=== PATIENT | female | born 1945 | race Caucasian/White ===

== ENCOUNTER 2017-10-25 11:47 | Emergency (ER) | payer OTHER ==
[2017-10-25 11:57] VITALS: BMI 19.8
[2017-10-25] MEDS ORDERED: DEXAMETHASONE SOD PHOSPHATE 10 MG/1 ML VIAL ONE (12:04)
[2017-10-25] MEDS ORDERED: ALBUTEROL SO4 2.5/IPRATROPIUM 0.5 INH SOL 3 ML VIAL.NEB. NEB ONE (12:05)
--- NOTE | 2017-10-25 12:18 | PDOC ---
History of Present Illness - History of Present Illness Initial Comments: 10/25/17 15:25 The patient is a 72 year old female, with a significant past medical history of COPD, pulmonary hypertension, ESRD, hypothyroidism, who presents to the emergency department with, shortness of breath via EMS. The patient is unable to provide additional information secondary to clinical condition. However, the patient's daughter is present and explains she notified EMS as the patients oxygen saturation was 76% at home on 4 LPM of oxygen. As per patients daughter, the patient was recently discharged from [facility] four days ago after being admitted for 8 days with pneumonia. The patients daughter reports the patient has not been recovering well since discharge and states the patient has had sore throat and difficulty swallowing and speaking for approx. one day. Allergies: lisinopril, valsartan Primary Care Physician: Dr. Sesar Mauricio at [facility] <Law Ewing - Last Filed: 10/25/17 15:25> - General History Source: Patient, Family Exam Limitations: Language Barrier (taken with help of daughter who is bedside) <Ky Irizarry - Last Filed: 10/25/17 20:09> - General Chief Complaint: Shortness of Breath Stated Complaint: SHORTNESS OF BREATH/CHEST PAIN Time Seen by Provider: 10/25/17 11:58 Past History <Law Ewing - Last Filed: 10/25/17 15:25> - Past Medical History COPD: No HTN: Yes Psychiatric Problems: Yes Thyroid Disease: Yes Other medical history: pulmonary htn, CKD, spinal stenosis, arthritis - Suicide/Smoking/Psychosocial Hx Smoking History: Never smoked <Ky Irizarry - Last Filed: 10/25/17 20:09> - Past Medical History Allergies/Adverse Reactions: Allergies Allergy/AdvReac Type Severity Reaction Status Date / Time lisinopril Allergy Verified 10/25/17 11:52 valsartan Allergy Verified 10/25/17 11:52 Home Medications: Ambulatory Orders Allopurinol 300 mg PO DAILY 10/25/17 Aspirin [Aspirin EC] 81 mg PO DAILY 10/25/17 Calcium Acetate 0 mg PO DAILY 10/25/17 Citalopram Hydrobromide [Citalopram HBr] 0 mg PO DAILY 10/25/17 Levothyroxine [Synthroid -] 75 mcg PO DAILY 10/25/17 Sodium Bicarbonate 0 mg PO DAILY 10/25/17 Review of Systems - Review of Systems Comments:: 10/25/17 15:27 Constitutional - Pt denies Fever, Chills, weakness, HEENT: denies vision changes, sore throat Respiratory: +Shortness of breath. Denies cough, hemoptysis Cardiac: denies chest pain, palpitations, light headedness, leg swelling Abd/GI: denies abd pain, nausea, vomiting, blood per rectum, melena, diarrhea : denies dysuria, frequency, discharge Musculskelatal - denies back pain, joint swelling skin - denies bruising, erythema, rash neurological: denies headache, numbness, focal weakness, tingling, ataxia, weakness hematologic: denies anemia, easy bruising, easy bleeding <Law Ewing - Last Filed: 10/25/17 15:25> *Physical Exam - Vital Signs Last Vital Signs Temp Pulse Resp BP Pulse Ox 97.8 F 154 H 22 89/68 94 L 10/25/17 12:59 10/25/17 14:24 10/25/17 14:24 10/25/17 14:24 10/25/17 14:24 - Physical Exam Comments: 10/25/17 15:27 GENERAL: The patient is awake, alert, Pt appears to be moderate inrespiratory distress HEAD: Normocephalic, atraumatic. EYES: extraocular movements intact, sclera anicteric, conjunctiva clear. ENT: Normal voice, dry MM, no c NECK: Normal range of motion, supple, +JVD to jaw LUNGS: scant rales b/l, moderate respiratory distress HEART: tachycardic, irregular, distant heart sunds ABDOMEN: Soft, nontender, EXTREMITIES: Normal range of motion, no edema. NEUROLOGICAL: No facial assymetry, Normal speech, PSYCH: Normal mood, normal affect. SKIN: Warm, Dry, normal turgor, <Law Ewing - Last Filed: 10/25/17 15:25> - Vital Signs Last Vital Signs Temp Pulse Resp BP Pulse Ox 108 H 32 H 119/85 88 L 10/25/17 11:53 10/25/17 11:53 10/25/17 11:53 10/25/17 11:53 <Ky Irizarry - Last Filed: 10/25/17 20:09> Heart Score/ECG Review - ECG Impressions Comment:: 10/25/17 12:32 Twelve-lead EKG was performed and reviewed by me. Irregularly irregular, rate of 160 <Juan C,Ky - Last Filed: 10/25/17 20:09> ED Treatment Course - LABORATORY CBC & Chemistry Diagram: 10/25/17 12:22 10/25/17 12:22 - ADDITIONAL ORDERS Additional order review: Laboratory Results 10/25/17 10/25/17 10/25/17 12:32 12:22 12:22 PT with INR INR PTT (Actin FS) VBG pH 7.39 POC VBG pCO2 41.3 POC VBG pO2 24.0 L Mixed VBG HCO3 24.2 Sodium Potassium Chloride Carbon Dioxide Anion Gap BUN Creatinine Creat Clearance w eGFR Random Glucose Lactic Acid Calcium Total Bilirubin AST ALT Alkaline Phosphatase Creatine Kinase Troponin I B-Natriuretic Peptide 4634.16 H Total Protein Albumin TSH 0.11 L Blood Type Antibody Screen 10/25/17 10/25/17 10/25/17 12:22 12:22 12:22 PT with INR INR PTT (Actin FS) VBG pH POC VBG pCO2 POC VBG pO2 Mixed VBG HCO3 Sodium 138 Potassium 5.0 Chloride 104 Carbon Dioxide 25 Anion Gap 9 BUN 57 H Creatinine 2.4 H Creat Clearance w eGFR 19.84 Random Glucose 117 H Lactic Acid 2.2 H* Calcium 8.0 L Total Bilirubin 0.5 AST 175 H ALT 170 H Alkaline Phosphatase 312 H Creatine Kinase 48 Troponin I < 0.02 B-Natriuretic Peptide Total Protein 6.8 Albumin 2.4 L TSH Blood Type B POSITIVE Antibody Screen Negative 10/25/17 12:22 PT with INR 12.20 H INR 1.08 PTT (Actin FS) 27.6 VBG pH POC VBG pCO2 POC VBG pO2 Mixed VBG HCO3 Sodium Potassium Chloride Carbon Dioxide Anion Gap BUN Creatinine Creat Clearance w eGFR Random Glucose Lactic Acid Calcium Total Bilirubin AST ALT Alkaline Phosphatase Creatine Kinase Troponin I B-Natriuretic Peptide Total Protein Albumin TSH Blood Type Antibody Screen 10/25/17 12:22 RBC 2.94 L MCV 88.7 MCHC 31.8 L RDW 17.3 H MPV 8.5 Neutrophils % 79.1 Lymphocytes % 10.3 Monocytes % 9.8 Eosinophils % 0.4 Basophils % 0.4 - RADIOLOGY Radiograph Interpretation: 10/25/17 15:24 EXAM#: TYPE/EXAM: RESULT: [id number] RAD/CHEST X-RAY PORTABLE* EXAM: Chest x-ray - single AP portable view. INDICATION: Shortness of breath. COMPARISON: None available. FINDINGS: There is enlargement of the cardiac silhouette. There is mild pulmonary vascular congestion. There are small pleural effusions with blunting the costophrenic angles. There is fluid tracking along the right minor fissure. There is bibasilar subsegmental atelectasis. There is subsegmental atelectasis in the left midlung. There is no definable pneumothorax. There is calcific atherosclerosis along the aortic arch. No abnormal deviation of the trachea. There is acromioclavicular and glenohumeral arthropathy and degenerative changes in the visualized spine. IMPRESSION: Enlargement of the cardiac silhouette and mild pulmonary vascular congestion with small bilateral pleural effusions. Please correlate for mild to moderate CHF exacerbation. Subsegmental atelectasis in both lung bases and discoid atelectasis in the left midlung. Reported By: Rosa Riddle DO <Law Ewing - Last Filed: 10/25/17 15:25> - LABORATORY CBC & Chemistry Diagram: 10/25/17 12:22 10/25/17 12:22 <Ky Irizarry - Last Filed: 10/25/17 20:09> Medical Decision Making - Medical Decision Making 10/25/17 15:27 Dr. Mackenzie paged at 12:53 pm. Pending call back. Second page sent to Dr. Mackenzie at 1:[address] Mackenzie returned the page at 1: 45 pm. <Law Ewing - Last Filed: 10/25/17 15:25> - Medical Decision Making 10/25/17 12:21 72y F hx of pulm htn, known rbbb, hypothyroidism, copd, ?chf, esrd, htn, with recent hospitalization at [facility] for pneumonia s/p abx (vanc/zosyn, d/cd for outpatient), dc on 4L of NC 4 days ago, ?pericadial/pleural effusion, presents with worsening sob. Per daugther the pt has been persistently worsening hypoxic after dc, and finally agreed to come to the ED. The patient also endorses some chest pain. no f/c, +cough on exam pt appears sob, with jvd, scattered rales b/l pt was noted to be intermittently tachy to 170s but will drop down to 120s at rest. hypoxic to 60s on RA, and only improves to 70s on 4L of NC. pt was put on a NRB, will start bipap. ddx includes pericoardial effusion, uremia, consider PE, limited bedside echo shows pericardial effusion but quality of image is deminsihed, will get state formal echo here in ED. will ck labs, ekg will reassess 10/25/17 12:37 The patient's EKG reveals A. fib with a rate of 160 The patient's BP is normal however concerned that the patient may be tachycardic compensating for possible pericardial effusion Will obtain bedside echo to confirm effusion We'll consult with cardiology 10/25/17 12:46 called [facility] about prior hospitalization was d/c on 10/19 ekg was RBBB, NSR echo with normal EF, marked to severe pulm htn venous duplx eg vq neg cxr LLL atelectasis, ?pna CTA b/l pleural effusion with small pericardial effusion, no PE 10/25/17 13:23 official echo here - noted +pericardial effusion - moderate on my read awaiting formal read awaiting call back from cardiology for further intervention - if persistent tachycardic will rate control but would like input from cards 10/25/17 13:[address] fierro will come see the patient HR currently 118 comfortable appearing 10/25/17 14:[address] shi will ck echo - will hold of on a/c and rate control at this point as her HR is stable in the 110s if moderate to severe effusion, will consider transfer 10/25/17 15:03 requests transfer to [facility] [employer] pts HR increases to 160s occasionally, but reverts back to 90-100s. bp stable with SBP in 100, 90 10/25/17 15:28 ?intermittent cp - seems ton icnrease with her HR ?pt sitting up -? positional - possible pericarditis - will start pt on colchicine and ibuprofen awaiting EMS pickup The patient was seen and examined to determine medical stability. The patient is MEDICALLY STABLE at this time. Labs, EKG, radiological studies were ordered to expedite the patient's care. I certify that I have discussed with the patient and/or his sales representative health insurance the following risks and benefits of the proposed transfer. Risks include worsening of patients condition during transport,auto accident, or permanent disability. Benefits include receiving specialized care not available at this facility. I certify that, based on the information available at this time, the medical benefits reasonably expected from the provision of appropriate medical treatment at the receiving facility outweigh the increased risk to the patient. I believe the patient/relative/guardian understands what I have explained and answered. The patient will be transferred to the service of Dr. Sullivan at [facility] with plan for the [employer] CRITICAL CARE DOCUMENTATION: I spent ~110 minutes of Critical Care time, excluding separately billable procedures, involving high complexity decision making to assess, manipulate and support vital system function(s) to treat single or multiple vital organ system failure and/or to prevent further life threatening deterioration of the patient' s condition. <Ky Irizarry - Last Filed: 10/25/17 20:09> *DC/Admit/Observation/Transfer - Attestations Scribe Attestion: 10/25/17 15:28 Documentation prepared by Law Ewing, acting as medical coordinator pesticide use for Ky Irizarry MD. <Law Ewing - Last Filed: 10/25/17 15:25> - Discharge Dispostion Admit: No - Transfer to Acute Care Facility Receiving Facility: [facility] Accepting Physician:: Dr. Roger Sullivan <Ky Irizarry - Last Filed: 10/25/17 20:09> Diagnosis at time of Disposition: Pulmonary hypertension, Pericardial effusion Atrial fibrillation Qualifiers: Atrial fibrillation type: unspecified Qualified Code(s): I48.91 - Unspecified atrial fibrillation - Discharge Dispostion Disposition: TRANSFER ACUTE CARE/OTHER HOSP Condition at time of disposition: Guarded - Referrals Referrals: Sesar Hung [Primary Care Provider] - - Patient Instructions - Post Discharge Activity
[2017-10-25 12:42] LABS: BASO % 0.4 % (0-2.0); EOS % 0.4 % (0-4.5); HEMATOCRIT 26.1 % (32.4-45.2); HEMOGLOBIN 8.3 GM/dL (10.7-15.3); LYMPH % 10.3 % (8-40); MCH 28.2 pg (25.7-33.7); MCHC 31.8 g/dl (32.0-36.0); MEAN CELL VOLUME 88.7 fl (80-96); MEAN PLT VOLUME 8.5 fl (7.5-11.1); MONO % 9.8 % (3.8-10.2); NEUT % 79.1 % (42.8-82.8); PLATELET COUNT 632 K/MM3 (134-434); RBC 2.94 M/mm3 (3.60-5.2); RDW 17.3 % (11.6-15.6)
[2017-10-25 12:54] LABS: INR 1.08 (0.82-1.09); PROTHROMBIN TIME (PATIENT) 12.2 SEC (9.98-11.88)
[2017-10-25 12:56] LABS: VENOUS PC02 41.3 mmHg (38-52); VENOUS PH 7.39 (7.32-7.42)
[2017-10-25 12:57] LABS: ACTIVATED PTT 27.6 SECONDS (26.9-34.4)
[2017-10-25 13:23] LABS: ALBUMIN 2.4 g/dl (3.4-5.0); ANION GAP 9 (8-16); BILIRUBIN,TOTAL 0.5 mg/dL (0.2-1.0); BLOOD UREA NITROGEN 57 mg/dL (7-18); CHLORIDE 104 mmol/L (98-107); CO2 25 mmol/L (21-32); CREATININE 2.4 mg/dL (0.55-1.02); GLUCOSE,RANDOM 117 mg/dL (74-106); SGOT/AST 175 U/L (15-37); SGPT/ALT 170 U/L (12-78); SODIUM 138 mmol/L (136-145); TOT PROT 6.8 g/dl (6.4-8.2)
[2017-10-25 13:26] LABS: ALK PHOS 312 U/L (45-117)
--- NOTE | 2017-10-25 15:15 | EKG ---
Test Reason : Blood Pressure : / mmHG Vent. Rate : 160 BPM Atrial Rate : 141 BPM P-R Int : 000 ms QRS Dur : 118 ms QT Int : 326 ms P-R-T Axes : 000 133 -34 degrees QTc Int : 531 ms POOR DATA QUALITY, INTERPRETATION MAY BE ADVERSELY AFFECTED ATRIAL FIBRILLATION WITH RAPID VENTRICULAR RESPONSE LOW VOLTAGE QRS RIGHT BUNDLE BRANCH BLOCK ABNORMAL ECG NO PREVIOUS ECGS AVAILABLE Confirmed by ABBY VINSON MD ([id number]) on 10/25/2017 3:15:13 PM Referred By: Confirmed By:ABBY VINSON MD
[2017-10-25] MEDS ORDERED: COLCHICINE 0.6 MG TABLET (FP) PO ONE (15:28)
[2017-10-25] MEDS ORDERED: IBUPROFEN 400 MG TABLET (FP) PO ONE (15:28)
[2017-10-25] MEDS ORDERED: COLCHICINE 0.6 MG TABLET (FP) ONE (15:44)
[2017-10-25] MEDS ORDERED: IBUPROFEN 600 MG TABLET (FP) PO ONE (15:44)
[2017-10-25 16:13] VITALS: BP 92/44; PULSE 142; TEMP 98.4
--- NOTE | 2017-10-25 16:17 | CON.CARD ---
Consult Consult Specialty:: Cardiology Referred by:: Juan C Reason for Consultation:: Pericardial effusion - History of Present Illness Chief Complaint: SOB History of Present Illness: 72 year old female pmhx of pulmonary htn, ckd, htn recently admitted to [facility] 10/11/17-10/19/17 for pna and pulmonary htn sent home on home 02 who presents with worsening sob and desats at home. No f/c/s. No n/v/d. + JVD. Found to have large pericardial effusion. New afib on EKG. - History Source History Provided By: Patient, Family Member, Medical Record - Past Medical History Cardio/Vascular: Yes: HTN Pulmonary: Yes: Other (pulmonary htn) Renal/: Yes: Renal Inusuff - Smoking History Smoking history: Never smoked Home Medications - Allergies Allergies/Adverse Reactions: Allergies Allergy/AdvReac Type Severity Reaction Status Date / Time lisinopril Allergy Verified 10/25/17 11:52 valsartan Allergy Verified 10/25/17 11:52 - Home Medications Home Medications: Ambulatory Orders Allopurinol 300 mg PO DAILY 10/25/17 Aspirin [Aspirin EC] 81 mg PO DAILY 10/25/17 Calcium Acetate 0 mg PO DAILY 10/25/17 Citalopram Hydrobromide [Citalopram HBr] 0 mg PO DAILY 10/25/17 Levothyroxine [Synthroid -] 75 mcg PO DAILY 10/25/17 Sodium Bicarbonate 0 mg PO DAILY 10/25/17 Vital Signs: Vital Signs Temperature 97.8 F 10/25/17 12:59 Pulse Rate 154 H 10/25/17 14:24 Respiratory Rate 22 10/25/17 14:24 Blood Pressure 89/68 10/25/17 14:24 O2 Sat by Pulse Oximetry (%) 94 L 10/25/17 14:24 Constitutional: Yes: Mild Distress Respiratory: Yes: Rales (bibasilar rales) Gastrointestinal: Yes: Soft Cardiovascular: Yes: Tachycardia, Pulse Irregular JVD: Yes Carotid Bruit: No Heart Sounds: Yes: S1, S2 Edema: No - Other Data Labs, Other Data: CBC, BMP 10/25/17 12:22 10/25/17 12:22 INR, PTT INR 1.08 (0.82-1.09) 10/25/17 12:22 Troponin, BNP 10/25/17 10/25/17 12:22 12:22 Troponin I < 0.02 B-Natriuretic Peptide 4634.16 H Troponin, BNP 10/25/17 10/25/17 12:22 12:22 Troponin I < 0.02 B-Natriuretic Peptide 4634.16 H Imaging - Results Chest X-ray: Report Reviewed EKG: Image Reviewed Problem List - Problems (1) Pericardial effusion Code(s): I31.3 - PERICARDIAL EFFUSION (NONINFLAMMATORY) Assessment/Plan 72 year old female pmhx of pulmonary htn, ckd, htn recently admitted to [facility] 10/11/17-10/19/17 for pna and pulmonary htn sent home on home 02 who presents with worsening sob and desats at home. No f/c/s. No n/v/d. + JVD. Found to have large pericardial effusion. New afib on EKG. 1) Pericardial effusion -Large pericardial effusion. Will transfer to [facility] [employer] for possible pericardiocentesis Will see how HR is and if needs will start digoxin. Treat possible pericarditis pain as well. May need CCU monitoring at [facility]
== END 2017-10-25 16:17 | disposition short-term general hospital (02) ==
LOC: JER 11:47
DX: I27.20 Pulmonary hypertension, unspecified (principal); I31.3 Pericardial effusion (noninflammatory); I48.91 Unspecified atrial fibrillation
CPT/HCPCS: 36415; 71045-TC; 80053; 82550; 82803; 83605; 83880; 84443; 84484; 85025; 85610; 85730; 86850; 86900; 86901; 87040; 93005; 93010; 93306-TC; 99285-25

== ENCOUNTER 2018-12-11 16:42 | Emergency (ER) | payer OTHER ==
[2018-12-11 17:07] VITALS: BP 101/56; PULSE 66; BMI 22.2
[2018-12-11] MEDS ORDERED: ACETAMINOPHEN 325 MG TABLET (FP) PO ONE (17:14)
--- NOTE | 2018-12-11 17:15 | PDOC ---
History of Present Illness - General Chief Complaint: Injury Stated Complaint: FALL Time Seen by Provider: 12/11/18 16:56 History Source: Patient Exam Limitations: No Limitations Past History - Travel Traveled outside of the country in the last 30 days: No Close contact w/someone who was outside of country & ill: No - Past Medical History Allergies/Adverse Reactions: Allergies Allergy/AdvReac Type Severity Reaction Status Date / Time lisinopril Allergy Verified 12/11/18 16:49 valsartan Allergy Verified 12/11/18 16:49 Home Medications: Ambulatory Orders Allopurinol 300 mg PO DAILY 10/25/17 Citalopram Hydrobromide [Citalopram HBr] 20 mg PO DAILY 10/25/17 Levothyroxine [Synthroid -] 75 mcg PO DAILY 10/25/17 Sodium Bicarbonate 650 mg PO BID 10/25/17 Furosemide [Lasix -] 40 mg PO BID 02/20/18 Metoprolol Tartrate [Lopressor -] 25 mg PO BID 02/20/18 Pregabalin [Lyrica -] 50 mg PO HS 02/20/18 Sildenafil Citrate [Sildenafil] 20 mg PO TID 02/20/18 Tramadol HCl [Ultram] 50 mg PO BID PRN 02/20/18 Lidocaine 4% Topical [Xylocaine 4% Topical -] 1 applic MM BID #1 btl 12/11/18 Oxycodone HCl/Acetaminophen [Percocet 5-325 mg Tablet] 1 tab PO Q6H #10 tablet MDD 2 12/11/18 COPD: No HTN: Yes Psychiatric Problems: Yes Thyroid Disease: Yes - Suicide/Smoking/Psychosocial Hx Smoking History: Smoker current status UNK Review of Systems - Review of Systems Able to Perform ROS?: Yes Comments:: 12/11/18 17:11 CONSTITUTIONAL: Absent: fever, chills, diaphoresis, generalized weakness, malaise, loss of appetite HEENT: Absent: rhinorrhea, nasal congestion, throat pain, throat swelling, difficulty swallowing, mouth swelling, ear pain, eye pain, visual Changes CARDIOVASCULAR: Absent: chest pain, loss of consciousness, palpitations, irregular heart rate, peripheral edema RESPIRATORY: Absent: cough, shortness of breath, dyspnea with exertion, orthopnea, wheezing, stridor, hemoptysis GASTROINTESTINAL: Absent: abdominal pain, abdominal distension, nausea, vomiting, diarrhea, constipation, melena, hematochezia GENITOURINARY: Absent: dysuria, frequency, urgency, hesitancy, hematuria, flank pain, genital pain MUSCULOSKELETAL: Absent: myalgia, arthralgia, joint swelling SKIN: Absent: rash, itching, pallor HEMATOLOGIC/IMMUNOLOGIC: Absent: easy bleeding, easy bruising, lymphadenopathy, frequent infections ENDOCRINE: Absent: unexplained weight gain, unexplained weight loss, heat intolerance, cold intolerance NEUROLOGIC: Absent: headache, focal weakness or paresthesias, dizziness, unsteady gait, seizure, mental status changes, bladder or bowel incontinence PSYCHIATRIC: Absent: anxiety, depression, suicidal or homicidal ideation, hallucinations. Is the patient limited Tamazight proficient: No *Physical Exam - Vital Signs Last Vital Signs Temp Pulse Resp BP Pulse Ox 66 22 H 101/56 L 91 L 12/11/18 16:54 12/11/18 16:54 12/11/18 16:54 12/11/18 16:54 - Physical Exam Comments: 12/11/18 17:11 GENERAL: Well developed, well nourished. Awake and alert. No acute distress. HEENT: Normocephalic, atraumatic. PERRLA, EOMI. No conjunctival pallor. Sclera are non- icteric. Moist mucous membranes. Oropharynx is clear. NECK: Supple. Full ROM. No JVD. Carotid pulses 2+ and symmetric, without bruits. No thyromegaly. No lymphadenopathy. CARDIOVASCULAR: Regular rate and rhythm. No murmurs, rubs, or gallops. Distal pulses are 2+ and symmetric. PULMONARY: No evidence of respiratory distress. Lungs clear to auscultation bilaterally. No wheezing, rales or rhonchi. ABDOMINAL: Soft. Non-tender. Non-distended. No rebound or guarding. No organomegaly. Normoactive bowel sounds. MUSCULOSKELETAL Normal range of motion at all joints. No bony deformities or tenderness. No CVA tenderness. EXTREMITIES: No cyanosis. No clubbing. No edema. No calf tenderness. SKIN: Warm and dry. Normal capillary refill. No rashes. No jaundice. NEUROLOGICAL: Alert, awake, appropriate. Cranial nerves 2-12 intact. No deficits to light touch and temperature in face, upper extremities and lower extremities. No motor deficits in the in face, upper extremities and lower extremities. Normoreflexic in the upper and lower extremities. Normal speech. Toes are down- going bilaterally. Gait is normal without ataxia. PSYCHIATRIC: Cooperative. Good eye contact. Appropriate mood and affect. Moderate Sedation - Procedure Monitoring Vital Signs: Procedure Monitoring Vital Signs Temperature Pulse Rate 66 12/11/18 16:54 Respiratory Rate 22 H 12/11/18 16:54 Blood Pressure 101/56 L 12/11/18 16:54 O2 Sat by Pulse Oximetry (%) 91 L 12/11/18 16:54 *DC/Admit/Observation/Transfer Diagnosis at time of Disposition: Fall Qualifiers: Encounter type: initial encounter Qualified Code(s): W19.XXXA - Unspecified fall, initial encounter Fractured toe Qualifiers: Encounter type: initial encounter Toe: lesser toe Fracture type: closed Phalanx : distal Fracture alignment: nondisplaced Laterality: right Qualified Code(s): S92.534A - Nondisplaced fracture of distal phalanx of right lesser toe(s), initial encounter for closed fracture - Discharge Dispostion Disposition: HOME Condition at time of disposition: Stable Decision to Admit order: No - Referrals Referrals: Betsey Patel DPM [Staff Physician] - - Patient Instructions Printed Discharge Instructions: DI for Toe Fracture Additional Instructions: You have a toe fracture to your right second toe. Otherwise her x-rays were normal. Please take the Percocet twice a day as needed for pain. He may use the lidocaine cream twice a day for pain to the site. Keep the foot elevated when resting. Use urszula tape to keep the toes together. Wear the hard sole shoe to keep pressure off of the foot Follow up with your orthopedic doctor and podietry. A referral has been provided Return to the ER for any new or worsening symptoms. - Post Discharge Activity
[2018-12-11] MEDS ORDERED: ACETAMINOPHEN 325 MG TABLET (FP) ONE (17:16)
[2018-12-11] MEDS ORDERED: LIDOCAINE 5% TOPICAL PATCH TP ONE (18:40)
[2018-12-11] MEDS ORDERED: LIDOCAINE 5% TOPICAL PATCH ONE (18:47)
[2018-12-11] MEDS ORDERED: LIDOCAINE PATCH REMOVAL MC SCH (22:00)
== END 2018-12-11 20:37 | disposition home or self-care (01) ==
LOC: JER 16:42
DX: S92.535A Nondisplaced fracture of distal phalanx of left lesser toe(s), initial encounter for closed fracture (principal); W18.09XA Striking against other object with subsequent fall, initial encounter; Y93.89 Activity, other specified; Y92.89 Other specified places as the place of occurrence of the external cause; Y99.8 Other external cause status; I10 Essential (primary) hypertension; E03.9 Hypothyroidism, unspecified
CPT/HCPCS: 73562-TC-LT-FY; 73610-TC-RT-FY; 73630-TC-RT-FY; 99281-25

== ENCOUNTER 2019-01-13 21:08 | Emergency (ER) | payer OTHER ==
--- NOTE | 2019-01-13 21:16 | PDOC ---
Rapid Medical Evaluation Time Seen by Provider: 01/13/19 21:15 Medical Evaluation: Allergies Allergy/AdvReac Type Severity Reaction Status Date / Time lisinopril Allergy Verified 12/11/18 16:49 valsartan Allergy Verified 12/11/18 16:49 01/13/19 21:15 I have performed a brief in-person evaluation of this patient. The patient presents with a chief complaint of: occipital [place] s/p slip and fall striking occiput on toilet. ?LOC Pertinent physical exam findings: cincinatti scale negative. No hematomas. I have ordered the following: CTH, CT c-spine The patient will proceed to the ED for further evaluation. Discharge Disposition - Diagnosis Head trauma - Referrals - Patient Instructions - Post Discharge Activity
--- NOTE | 2019-01-13 21:53 | PDOC ---
History of Present Illness - General History Source: Family Exam Limitations: No Limitations - History of Present Illness Initial Comments: 01/13/19 22:59 The patient is a 73 year old female with a past medical history of COPD on 2L, pulmonary hypertension, gout, CAD, atrial fibrillation and hypothyroidism who presents to the emergency department for evaluation of head trauma s/p unwitnessed fall. Per family at bedside, patient was found in bathroom floor after unwitnessed fall since 630pm. Family reports patient stuck the back of her head against the toilet and had a positive loss of consciousness prior to her calling for help. Patient is on home o2 at 2 LPM. Patient endorses headache since 630pm. Unable to obtain further history due to patients current clinical condition. Allergies: Lisinopril, valsartan Social History: No reported alcohol, cigarette, or drug use. PCP: Trudy staff <Marimar Heath - Last Filed: 01/13/19 23:22> <Shani Gillette - Last Filed: 01/13/19 23:25> - General Stated Complaint: FALL Time Seen by Provider: 01/13/19 21:15 Past History <Marimar Heath - Last Filed: 01/13/19 23:22> - Past Medical History COPD: No HTN: Yes Psychiatric Problems: Yes Thyroid Disease: Yes - Suicide/Smoking/Psychosocial Hx Smoking History: Smoker current status UNK <Shani Gillette - Last Filed: 01/13/19 23:25> - Past Medical History Allergies/Adverse Reactions: Allergies Allergy/AdvReac Type Severity Reaction Status Date / Time lisinopril Allergy Verified 01/13/19 22:02 valsartan Allergy Verified 01/13/19 22:02 Home Medications: Ambulatory Orders Allopurinol 300 mg PO DAILY 10/25/17 Citalopram Hydrobromide [Citalopram HBr] 20 mg PO DAILY 10/25/17 Levothyroxine [Synthroid -] 100 mcg PO DAILY 10/25/17 Sodium Bicarbonate 650 mg PO DAILY 10/25/17 Furosemide [Lasix -] 40 mg PO DAILY 02/20/18 Metoprolol Tartrate [Lopressor -] 25 mg PO DAILY 02/20/18 Pregabalin [Lyrica -] 100 mg PO HS 02/20/18 Sildenafil Citrate [Sildenafil] 20 mg PO BID 02/20/18 Tramadol HCl [Ultram] 50 mg PO BID PRN 02/20/18 Review of Systems - Review of Systems Able to Perform ROS?: Yes Comments:: 01/13/19 22:59 CONSTITUTIONAL: Absent: fever, chills, diaphoresis, generalized weakness, malaise, loss of appetite HEENT: Absent: rhinorrhea, nasal congestion, throat pain, throat swelling, difficulty swallowing, mouth swelling, ear pain, eye pain, visual Changes CARDIOVASCULAR: Absent: chest pain, syncope, palpitations, irregular heart rate, lightheadedness , peripheral edema RESPIRATORY: Absent: cough, shortness of breath, dyspnea with exertion, orthopnea, wheezing, stridor, hemoptysis GASTROINTESTINAL: Absent: abdominal pain, abdominal distension, nausea, vomiting, diarrhea, constipation, melena, hematochezia GENITOURINARY: Absent: dysuria, frequency, urgency, hesitancy, hematuria, flank pain, genital pain MUSCULOSKELETAL: (+)Head pain. Absent: myalgia, arthralgia, joint swelling SKIN: Absent: rash, itching, pallor HEMATOLOGIC/IMMUNOLOGIC: Absent: easy bleeding, easy bruising, lymphadenopathy, frequent infections ENDOCRINE: Absent: unexplained weight gain, unexplained weight loss, heat intolerance, cold intolerance NEUROLOGIC: (+)Headache. (+)Loss of consciousness Absent: focal weakness or paresthesias, dizziness, unsteady gait, seizure, mental status changes, bladder or bowel incontinence PSYCHIATRIC: Absent: anxiety, depression, suicidal or homicidal ideation, hallucinations. <Marimar Heath - Last Filed: 01/13/19 23:22> *Physical Exam - Vital Signs Last Vital Signs Temp Pulse Resp BP Pulse Ox 98.6 F 85 18 164/91 95 01/13/19 22:51 01/13/19 22:51 01/13/19 22:51 01/13/19 22:51 01/13/19 21:08 - Physical Exam Comments: 01/13/19 23:22 GENERAL: Petite. Alert and anxious 73 y/o female c/o headache s/p fall HEENT: Normocephalic, atraumatic. PERRLA, EOMI. No conjunctival pallor. Sclera are non- icteric. Moist mucous membranes. NECK: Supple. Full ROM. No JVD. Carotid pulses 2+ and symmetric, without bruits. No midline cervical spine tenderness. CARDIOVASCULAR: (+)Tachycardic. Distal pulses are 2+ and symmetric. PULMONARY: No evidence of respiratory distress. Lungs clear to auscultation bilaterally. No wheezing, rales or rhonchi. ABDOMINAL: Soft. Non-tender. Non-distended. No rebound or guarding. No organomegaly. Normoactive bowel sounds. MUSCULOSKELETAL Normal range of motion at all joints. No bony deformities or tenderness. No CVA tenderness. EXTREMITIES: Extremities, no lower pitting edema, cellulitis or erythema. Arms and legs without deformities with full ROM. SKIN: Warm and dry. Normal capillary refill. No rashes. No jaundice. NEUROLOGICAL: Alert, awake, appropriate. Cranial nerves 2-12 intact. No deficits to light touch and temperature in face, upper extremities and lower extremities. No motor deficits in the in face, upper extremities and lower extremities. Normoreflexic in the upper and lower extremities. Normal speech. Toes are down- going bilaterally. Motor strength 5/5. PSYCHIATRIC: Very anxious. <Marimar Heath - Last Filed: 01/13/19 23:22> ED Treatment Course - LABORATORY CBC & Chemistry Diagram: 01/13/19 22:42 01/13/19 22:00 - ADDITIONAL ORDERS Additional order review: Laboratory Results 01/13/19 01/13/19 01/13/19 22:00 22:00 22:00 PT with INR Cancelled INR Cancelled Sodium Cancelled Potassium Cancelled Chloride Cancelled Carbon Dioxide Cancelled Anion Gap Cancelled BUN Cancelled Creatinine Cancelled Creat Clearance w eGFR Cancelled Random Glucose Cancelled Calcium Cancelled Total Bilirubin Cancelled AST Cancelled ALT Cancelled Alkaline Phosphatase Cancelled Creatine Kinase Cancelled Troponin I Cancelled Total Protein Cancelled Albumin Cancelled Anti-A Titer Cancelled Blood Type Cancelled Antibody Screen Cancelled 01/13/19 22:00 RBC 4.57 MCV 94.7 MCHC 32.8 RDW 16.3 H MPV 9.7 D Neutrophils % 69.2 Lymphocytes % 17.0 Monocytes % 11.9 H Eosinophils % 1.4 Basophils % 0.5 - Medications Given in the ED: ED Medications Discontinued Medications Generic Name Dose Route Start Last Admin Trade Name Freq PRN Reason Stop Dose Admin Acetaminophen 1,000 mg 01/13/19 22:49 01/13/19 22:50 Ofirmev Injection - IVPB 01/13/19 22:50 1,000 mg ONCE ONE Administration Levetiracetam 1,000 mg 01/13/19 22:48 01/13/19 22:50 Keppra Injection - IVPB 01/13/19 22:49 1,000 mg ONCE ONE Administration Morphine Sulfate 2 mg 01/13/19 22:43 01/13/19 22:45 Morphine Injection - IVPUSH 01/13/19 22:44 2 mg ONCE ONE Administration Ondansetron HCl 4 mg 01/13/19 22:43 01/13/19 22:46 Zofran Injection IVPUSH 01/13/19 22:44 4 mg ONCE STA Administration Ondansetron HCl 8 mg 01/13/19 22:48 01/13/19 22:50 Zofran Injection IVPUSH 01/13/19 22:49 8 mg ONCE ONE Administration <Marimar Heath - Last Filed: 01/13/19 23:22> - LABORATORY CBC & Chemistry Diagram: 01/13/19 22:42 01/13/19 22:00 <Shani Gillette - Last Filed: 01/13/19 23:25> Medical Decision Making - Medical Decision Making 01/13/19 23:[address] Nain Wade Neurosurgery who suggests transfer to [facility] at 21:14. Call placed to [facility] at 22:00 for an ED to ED transfer with accepting Neurosurgeons Dr. Silva and Dr. Carpio who agree that Neurosurgery will see the patient when she arrives in [facility] ED, accepting ED attending Dr. Jeff. <Marimar Heath - Last Filed: 01/13/19 23:22> - Critical Care Time Total Critical Care Time (minutes): 90 Critical Care Statement: The care of this patient involved high complexity decision making to prevent further life threatening deterioration of the patient 's condition and/or to evaluate & treat vital organ system(s) failure or risk of failure. - Medical Decision Making 01/13/19 22:04 73 yo female fell in the bathroom <Shani Gillette - Last Filed: 01/13/19 23:25> *DC/Admit/Observation/Transfer - Attestations Scribe Attestion: 01/13/19 23:10 Documentation prepared by Marimar Heath, acting as medical logistics specialist for Shani Gillette MD. <Marimar Heath - Last Filed: 01/13/19 23:22> <Shani Gillette - Last Filed: 01/13/19 23:25> Diagnosis at time of Disposition: Acute subdural hematoma Head trauma Qualifiers: Encounter type: initial encounter Qualified Code(s): S09.90XA - Unspecified injury of head, initial encounter - Discharge Dispostion Disposition: TRANSFER ACUTE CARE/OTHER HOSP Condition at time of disposition: Guarded - Referrals Referrals: Sesar Hung [Primary Care Provider] -
[2019-01-13 22:01] VITALS: BMI 25.0
[2019-01-13] MEDS ORDERED: levETIRAcetam 500 MG/5 ML INJECTION VIAL IVPB ONE ×2 (22:08→22:48)
[2019-01-13] MEDS ORDERED: ACETAMINOPHEN INJECTION 100 ML IVPB ONE (22:08)
[2019-01-13 22:09] LABS: BASO % 0.5 % (0-2.0); EOS % 1.4 % (0-4.5); HEMATOCRIT 43.3 % (32.4-45.2); HEMOGLOBIN 14.2 GM/dL (10.7-15.3); MCHC 32.8 g/dl (32.0-36.0); MEAN CELL VOLUME 94.7 fl (80-96); MEAN PLT VOLUME 9.7 fl (7.5-11.1); MONO % 11.9 % (3.8-10.2); NEUT % 69.2 % (42.8-82.8); PLATELET COUNT 321 K/MM3 (134-434); RBC 4.57 M/mm3 (3.60-5.2); RDW 16.3 % (11.6-15.6); WHITE BLOOD COUNT 13.3 K/mm3 (4.0-10.0)
[2019-01-13] MEDS ORDERED: ONDANSETRON 4 MG/2 ML VIAL ONE ×2 (22:23→22:43)
[2019-01-13] MEDS ORDERED: MORPHINE SULFATE 2 MG/ML VIAL ONE (22:43)
[2019-01-13] MEDS ORDERED: ONDANSETRON 4 MG/2 ML VIAL IVPUSH STA (22:43)
[2019-01-13] MEDS ORDERED: morphine CARPU-JECT 2 MG/1 ML DISP.SYRIN IVPUSH ONE (22:43)
[2019-01-13] MEDS ORDERED: ONDANSETRON 4 MG/2 ML VIAL IVPUSH ONE (22:48)
[2019-01-13] MEDS ORDERED: ACETAMINOPHEN 1000 MG/100 ML VIAL (NON FORMULARY) IVPB ONE (22:49)
[2019-01-13 22:54] VITALS: BP 164/91; PULSE 85; TEMP 98.6
[2019-01-13 23:13] LABS: BASO % 0.2 % (0-2.0); EOS % 1.4 % (0-4.5); HEMATOCRIT 41.3 % (32.4-45.2); HEMOGLOBIN 13.7 GM/dL (10.7-15.3); LYMPH % 21.3 % (8-40); MCH 31.2 pg (25.7-33.7); MCHC 33.1 g/dl (32.0-36.0); MEAN CELL VOLUME 94.4 fl (80-96); MEAN PLT VOLUME 10.2 fl (7.5-11.1); MONO % 13.2 % (3.8-10.2); NEUT % 63.9 % (42.8-82.8); PLATELET COUNT 306 K/MM3 (134-434); RBC 4.37 M/mm3 (3.60-5.2); RDW 16.2 % (11.6-15.6); WHITE BLOOD COUNT 13.2 K/mm3 (4.0-10.0)
[2019-01-13 23:35] LABS: ALBUMIN 3.2 g/dl (3.4-5.0); ALK PHOS 141 U/L (45-117); ANION GAP 8 MMOL/L (8-16); BILIRUBIN,TOTAL 0.2 mg/dL (0.2-1); BLOOD UREA NITROGEN 60 mg/dL (7-18); CALCIUM 8.2 mg/dL (8.5-10.1); CHLORIDE 107 mmol/L (98-107); CO2 19 mmol/L (21-32); CREATININE 1.5 mg/dL (0.55-1.3); GLUCOSE,RANDOM 105 mg/dL (74-106); POTASSIUM 4.2 mmol/L (3.5-5.1); SGOT/AST 33 U/L (15-37); SGPT/ALT 27 U/L (13-61); SODIUM 134 mmol/L (136-145)
--- NOTE | 2019-01-14 09:36 | EKG ---
Test Reason : Blood Pressure : / mmHG Vent. Rate : 078 BPM Atrial Rate : 078 BPM P-R Int : 202 ms QRS Dur : 140 ms QT Int : 444 ms P-R-T Axes : 064 -48 011 degrees QTc Int : 506 ms NORMAL SINUS RHYTHM LEFT AXIS DEVIATION RIGHT BUNDLE BRANCH BLOCK ABNORMAL ECG WHEN COMPARED WITH ECG OF 20-FEB-2018 11:28, NO SIGNIFICANT CHANGE WAS FOUND Confirmed by KRISHNA COOK, JAMARI ([id number]) on 01/14/2019 9:35:53 AM Referred By: Confirmed By:JAMARI KELLER MD
== END 2019-01-13 22:41 | disposition short-term general hospital (02) ==
LOC: JER 21:08
PROC: 3E033NZ Introduction of Analgesics, Hypnotics, Sedatives into Peripheral Vein, Percutaneous Approach (ICD-10-PCS; principal; 2019-01-13)
PROC: 3E033GC Introduction of Other Therapeutic Substance into Peripheral Vein, Percutaneous Approach (ICD-10-PCS; 2019-01-13)
DX: S06.5X9A Traumatic subdural hemorrhage with loss of consciousness of unspecified duration, initial encounter (principal); W22.03XA Walked into furniture, initial encounter; Y93.89 Activity, other specified; Y92.002 Bathroom of unspecified non-institutional (private) residence as the place of occurrence of the external cause; I10 Essential (primary) hypertension; F99 Mental disorder, not otherwise specified; E07.9 Disorder of thyroid, unspecified; J44.9 Chronic obstructive pulmonary disease, unspecified; I48.91 Unspecified atrial fibrillation; I25.10 Atherosclerotic heart disease of native coronary artery without angina pectoris; I27.20 Pulmonary hypertension, unspecified; F17.210 Nicotine dependence, cigarettes, uncomplicated
CPT/HCPCS: 36415; 70450-TC; 71045-TC-FY; 72125-TC; 80053; 85025; 86850; 86900; 86901; 93005; 93010; 96374; 96375; 96376; 99284-25; J0131